=== PATIENT | female | born 1995 | race Caucasian/White ===

== ENCOUNTER 2016-12-06 12:42 | Emergency (ER) | payer OTHER ==
[2016-12-06] MEDS ORDERED: Clindamycin 600 MG IVPREMIX(* 600 MG/50 ML SDV IV ONE (13:05)
--- NOTE | 2016-12-06 13:07 | ED ---
Throat Pain/Nasal Congestion - HPI Summary HPI Summary: 21F presents with right eye swelling. She has been having issues with the eye such as stye over the past three weeks. She has been having eye irritation and redness off and on in both eyes. She states yesterday the eyelid started to swell, she had yellow drainage from the eye and her vision became blurry. She states the swelling today was worst. She has been on augmentin orally and erythromycin ointment. She does not wear contacts. She denies any dental pain. She does have sinus tenderness and has sinus congestion. She has a history of seasonally allergies. She denies any fever. she is having photophobia. - History of Current Complaint Chief Complaint: EDEyeProblem Time Seen by Provider: 12/06/16 12:50 - Allergies/Home Medications Allergies/Adverse Reactions: Allergies Allergy/AdvReac Type Severity Reaction Status Date / Time No Known Allergies Allergy Verified 12/06/16 12:44 PMH/Surg Hx/FS Hx/Imm Hx Endocrine/Hematology History: Denies: Hx Anticoagulant Therapy Respiratory History: Reports: Hx Asthma - exercise-induced Infectious Disease History: No Infectious Disease History: Denies: Traveled Outside the [place] in Last 30 Days - Family History Known Family History: Positive: Hypertension - Social History Alcohol Use: Occasionally Substance Use Type: Reports: None Hx Tobacco Use: No Smoking Status (MU): Never Smoked Tobacco Review of Systems Negative: Fever Positive: Photophobia, Blurred Vision, Drainage Positive: Nasal Discharge. Negative: Sore Throat, Ear Ache Negative: Chest Pain Negative: Shortness Of Breath All Other Systems Reviewed And Are Negative: Yes Physical Exam Triage Information Reviewed: Yes Vital Signs On Initial Exam: Initial Vitals Temp Pulse Resp BP Pulse Ox 97.8 F 80 16 127/79 100 12/06/16 12:44 12/06/16 12:44 12/06/16 12:44 12/06/16 12:44 12/06/16 12:44 Vital Signs Reviewed: Yes Appearance: Positive: Well-Appearing Skin: Positive: Warm, Dry Head/Face: Positive: Normal Head/Face Inspection Eyes: Positive: EOMI - with pain, DIMITRY, Discharge - yellow, Other: - edema present to upper and lower lid of right eye ENT: Positive: Normal ENT inspection, Pharynx normal, Nasal congestion, Nasal drainage, TMs normal Neck: Positive: Supple, Nontender, No Lymphadenopathy Respiratory/Lung Sounds: Positive: Clear to Auscultation, Breath Sounds Present Cardiovascular: Positive: Normal, RRR Diagnostics - Vital Signs Vital Signs Temp Pulse Resp BP Pulse Ox 12/06/16 12:44 97.8 F 80 16 127/79 100 - Laboratory Result Diagrams: 12/06/16 13:10 12/06/16 13:10 Lab Statement: Any lab studies that have been ordered have been reviewed, and results considered in the medical decision making process. - CT orbit CT Interpretation: Positive (See Comments) - IMPRESSION: SMALL AMOUNT OF PRESEPTAL SOFT TISSUE SWELLING IN THE RIGHT, OTHERWISE NEGATIVE CT Interpretation Completed By: Radiologist EENT Course/Dx - Course Course Of Treatment: 21F presents with swelling in right eyelid for a day. was seen at urgent care and was placed on augmentin took three tablets and erythromycin ointment. admits to blurry vision, unable to open eyes more than 1/ 2 cm, yellow drainage, denies any fever. on exam has pain with EOM so will get CT to check for orbital cellulitis. gave dose of IV clindamycin. wbc 8.1, lactic normal. CT show small amount of preseptal soft tissue swelling in right. discussed that need to add bactrim to augmentin to cover more pathogens. on exam mild edema of eyelid. patient understands and agrees with plan - Differential Diagnoses Differential Diagnoses: Conjunctivitis, Other - orbital, periorbital cellulitis - Diagnoses Provider Diagnoses: Periorbital cellulitis of right eye Discharge - Discharge Plan Condition: Good Disposition: HOME Prescriptions: Amoxicillin/Clavulanate TAB* [Augmentin TAB 875*] 875 mg PO BID #6 tab Sulfamethox/Trimethoprim DS* [Bactrim DS 800/160 TAB*] 1 tab PO BID #19 tab Patient Education Materials: Periorbital Cellulitis in Adults (ED) Referrals: No Primary Care Phys,NOPCP [Primary Care Provider] - Rafi Alvarez MD [Medical Doctor] - Additional Instructions: Take Augmentin as prescribed and added on three more days to take antibiotic Take Bactrim twice a day for 10 days, take first dose tonight Follow up with ophthalmology Return to ED if develop fever, worsening pain with eye movement, or any new or worsening symptoms
[2016-12-06 13:26] LABS: Hematocrit 39 % (35-47); Hemoglobin 12.9 g/dl (12.0-16.0); Mean Corpuscular HGB Conc 33 g/dl (31-36); Mean Corpuscular Hemoglobin 29 pg (27-31); Mean Corpuscular Volume 86 fL (80-97); Mean Platelet Volume 7 um3 (7.4-10.4); Red Cell Distribution Width 13 % (10.5-15); White Blood Count 8.1 10^3/ul (3.5-10.8)
[2016-12-06 13:40] LABS: BUN/Creatinine Ratio 16.1 (8-20); Calcium 9.2 mg/dL (8.6-10.3); EGFR African American 97.9 (>60); EGFR Non-African American 76.1 (>60); Globulin 2.9 g/dL (2-4); Potassium 3.8 mmol/L (3.5-5.0); Total Bilirubin 0.5 mg/dL (0.2-1.0); Total Protein 6.9 g/dL (6.4-8.9)
[2016-12-06] MEDS ORDERED: Iohexol 300* (CONTRAST) 10 ML SDV IV ONE (13:45)
--- NOTE | 2016-12-06 14:19 | RAD ---
INDICATION: Right a pain and swelling COMPARISON: None TECHNIQUE: Contrast-enhanced study (76 mL Omnipaque 300) source images were acquired through the orbits. Coronal and sagittal reconstructed images were acquired. FINDINGS: Bones: There is no acute facial bone fracture. Orbits: The globes and intraconal structures appear intact. The optic nerves are symmetric. Extraocular muscles appear normal. There is no intraconal inflammatory change or retrobulbar mass.. Paranasal sinuses: There is mild maxillary antral sinus mucosal thickening. No air-fluid levels identified.. Brain: There are no acute abnormalities of the visualized brain parenchyma. Soft tissues: There is a small amount of soft tissue swelling in the preseptal soft tissues on the right Other: None The visualized soft tissue elements about the neck appear normal. IMPRESSION: SMALL AMOUNT OF PRESEPTAL SOFT TISSUE SWELLING IN THE RIGHT, OTHERWISE NEGATIVE
[2016-12-06] MEDS ORDERED: Sulfamethox/Trimethoprim DS 800/160* TAB PO ONE (14:41)
== END 2016-12-06 14:59 | disposition home or self-care (01) ==
LOC: ED 12:42
DX: L03.213 Periorbital cellulitis (principal); H53.149 Visual discomfort, unspecified; H53.8 Other visual disturbances
CPT/HCPCS: 36415; 70481; 80053; 83605; 85025; 99282; A9270-GY; Q9967

== ENCOUNTER 2017-08-23 21:39 | Emergency (ER) | payer OTHER ==
[2017-08-23] MEDS ORDERED: Ibuprofen TAB* 600 MG PO ONE (22:16)
--- NOTE | 2017-08-23 23:14 | UC ---
Mary Jane Ortez Julia, scribed for Irwin Avery MD on 08/23/17 at 2228 . General HPI - HPI Summary HPI Summary: This patient is a 22 year old F presenting to [facility] [place] with a chief complaint of sore throat worsening since last night. Patient reports congestion, ear pressure , difficulty breathing, body aches fever, chills, and headache. The patient rates the pain 4/10 in severity. Symptoms aggravated by nothing. Symptoms alleviated by nothing. Pt has positive strep contact at work. - History of Current Complaint Chief Complaint: UCRespiratory Stated Complaint: THROAT PAIN Time Seen by Provider: 08/23/17 21:58 Hx Obtained From: Patient Hx Last Menstrual Period: 3 WEEKS AGO Onset/Duration: Lasting Hours Timing: Constant Pain Intensity: 4 Pain Location at: throat, body aches Character: achy Aggravating: nothing Alleviating: nothing Associated Signs & Symptoms: Positive: Other - congestion, ear pressure, difficulty breathing, body aches fever, chills, and headache Related Hx: Recent Illness - recent positive strep contact - Allergy/Home Medications Allergies/Adverse Reactions: Allergies Allergy/AdvReac Type Severity Reaction Status Date / Time ENVIRONMENTAL* Allergy COUGH, Uncoded 08/23/17 22:05 CONGESTION, SNEEZING Home Medications: Home Medications Cetirizine* [ZyrTEC 10 MG TAB*] 10 mg PO DAILY 08/23/17 [History Confirmed 08/23] PMH/Surg Hx/FS Hx/Imm Hx Respiratory History: Asthma - exercise enduced Other History Of: Negative For: Anticoagulant Therapy - Surgical History Surgical History: None - Family History Known Family History: Positive: Hypertension - Social History Alcohol Use: Occasionally Substance Use Type: None Smoking Status (MU): Never Smoked Tobacco Review of Systems Constitutional: Fever, Chills ENT: Sore Throat, Ear Ache Respiratory: Shortness Of Breath, Other - chest congestion Musculoskeletal: Myalgia - body aches Neurological: Headache All Other Systems Reviewed And Are Negative: Yes Physical Exam Triage Information Reviewed: Yes Vital Signs: Initial Vital Signs Temp 99 F 08/23/17 22:00 Pulse 96 08/23/17 22:00 Resp 16 08/23/17 22:00 BP 131/89 08/23/17 22:00 Pulse Ox 100 08/23/17 22:00 Vital Signs Reviewed: Yes - Additional Comments General: well-appearing, no pain distress Skin: warm, color reflects adequate perfusion, dry Head: normal Eyes: EOMI, DIMITRY ENT: tonsils are 2+, mild posterior pharynx erythema Neck: supple, nontender Respiratory: CTA, breath sounds present Cardiovascular: RRR Abdomen: soft, nontender Bowel: present Musculoskeletal: normal, strength/ROM intact Neurological: normal, sensory/motor intact, A&O x3 Psychological: affect/mood appropriate Course/Dx - Course Course Of Treatment: BP noted and advised to follow up with PCP. DISCUSSED RESULTS WITH PATIENT AND SX TREATMENT. - Differential Dx - Multi-Symptom Provider Diagnoses: PHARYNGITIS. VIRAL ILLNESS Discharge - Discharge Plan Condition: Stable Disposition: HOME Patient Education Materials: Pharyngitis (ED), Viral Syndrome (ED) Referrals: [facility] [place] [facility] [Outside] Additional Instructions: FOLLOW UP WITH YOUR DOCTOR. GET RECHECKED FOR ANY WORSENING OF YOUR CONDITION OR QUESTIONS OR CONCERNS. Your blood pressure was elevated during todays visit; please follow up with your primary care provider within a week for further evaluation. The documentation as recorded by the Mary Jane trejo Julia accurately reflects the service I personally performed and the decisions made by me, Irwin Avery MD.
== END 2017-08-23 23:15 | disposition home or self-care (01) ==
LOC: UCEAST 21:39
DX: J02.9 Acute pharyngitis, unspecified (principal); B34.9 Viral infection, unspecified
CPT/HCPCS: 87502; 87651; 99211; A9270-GY; G0463

== ENCOUNTER 2018-01-12 16:31 | Emergency (ER) | payer OTHER ==
[2018-01-12 16:42] VITALS: BP 114/68
[2018-01-12] MEDS ORDERED: Ibuprofen TAB* 400 MG PO ONE (17:14)
[2018-01-12] MEDS ORDERED: Lidocaine/Epineph/Tetraca SOL* (LET solution) 4 ML BTL TOPICAL ONE (17:39)
--- NOTE | 2018-01-12 17:57 | UC ---
Laceration HPI - HPI Summary HPI Summary: 22 y/o female presents to the urgent care c/o left sole pain and puncture wound s/p swimming in the [facility] yesterday. Pt states she was walking w/ water shoes and hit something sharp and thinks she has a FB in her left sole and unsure if it is a glass or rock. Pain is 4/10 at touch and 8/10 w/ walking. Pt is not UTD w/ Tetanus vaccine. LMP:12/23/2017 on control. Pt denies fever, SOB, calf pain, chest pain, abdominal pain, N/V/D. - History Of Current Complaint Chief Complaint: UCLowerExtremity Stated Complaint: SPLINTER IN FOOT Time Seen by Provider: 01/12/18 17:01 Hx Obtained From: Patient Hx Last Menstrual Period: unknown Laceration Location: Foot - let sole puncture wound w/ a glass or rock s/p swimming Mechanism Of Injury: Sharp Trauma Onset/Duration: Gradual Onset, Still Present, Worse Since - today Severity: Moderate Pain Intensity: 5 Pain Scale Used: 0-10 Numeric Aggravating Factors: Other: - touch - Allergies/Home Medications Allergies/Adverse Reactions: Allergies Allergy/AdvReac Type Severity Reaction Status Date / Time ENVIRONMENTAL* Allergy COUGH, Uncoded 01/12/18 16:42 CONGESTION, SNEEZING Home Medications: Home Medications Levonorgestrel (Iud) [Mirena IUD] 01/12/18 [History] PMH/Surg Hx/FS Hx/Imm Hx Previously Healthy: Yes Respiratory History: Asthma Other Respiratory History: seasonal allergies Other History Of: Negative For: Anticoagulant Therapy - Surgical History Surgical History: None - Family History Known Family History: Positive: Hypertension - Social History Occupation: Student Lives: With Family Alcohol Use: Occasionally Substance Use Type: None Smoking Status (MU): Never Smoked Tobacco Review of Systems Constitutional: Negative Skin: Other - left soel punture wound w/ a glass or rock Eyes: Negative ENT: Negative Respiratory: Negative Cardiovascular: Negative Gastrointestinal: Negative Genitourinary: Negative Motor: Negative Neurovascular: Negative Musculoskeletal: Other: - left sole pain s/p puncture wound w/ glass or rock Neurological: Negative Psychological: Negative Is Patient Immunocompromised?: No All Other Systems Reviewed And Are Negative: Yes Physical Exam - Summary Physical Exam Summary: Vital Signs Reviewed: Yes General: well developed, well nourished female sitting in the examining table w/ o any apparent distress Eye Exam: Normal Eyes: Positive: Conjunctiva Clear - PERRLA, EOMI, fundi grossly normal ENT: Positive: Normal ENT inspection, Hearing grossly normal, Pharynx normal, TMs normal Neck: Positive: Supple, Nontender, No Lymphadenopathy Respiratory: Positive: Chest non-tender, Lungs clear, Normal breath sounds, No respiratory distress Cardiovascular: Positive: RRR, No Murmur, Pulses Normal, Brisk Capillary Refill Abdomen Description: Positive: Nontender, No Organomegaly, Soft. Negative: CVA Tenderness (R), CVA Tenderness (L) Bowel Sounds: Positive: Present Musculoskeletal: Positive: Strength Intact, ROM Intact, No Edema Neurological: Positive: Alert, Muscle Tone Normal Psychological Exam: Normal Skin: Positive:Lateral side of RT elbow near the lateral epicondyle with a linear superficial laceration about 2.5cm in size, bleeding, no foreign body observed. mild tenderness to palpation, mild ecchymosis around elbow. FROM of RT arm, sensation intact, capillary refill brisk, and pulses WNL. Triage Information Reviewed: Yes Vital Signs: Initial Vital Signs Temp 98.4 F 01/12/18 16:32 Pulse 84 01/12/18 16:32 Resp 16 01/12/18 16:32 BP 114/68 01/12/18 16:32 Pulse Ox 100 01/12/18 16:32 Laceration Course/Dx - Course/Dx Course Of Treatment: 22 y/o female presents to the urgent care c/o left sole pain and puncture wound s/p swimming in the [facility] yesterday. Pt states she was walking w/ water shoes and hit something sharp and thinks she has a FB in her left sole and unsure if it is a glass or rock. Pain is 4/10 at touch and 8/10 w/ walking. Pt is not UTD w/ Tetanus vaccine. LMP:12/23/2017 on control. Pt denies fever, SOB, calf pain, chest pain, abdominal pain, N/V/D.Hx obtained. Pt w/ a puncture wound and black discrete FB in the left sole at the level of the 4th Metatarsal on examiantion. Left foot X-ray ordered to see how big and deep is FB. Impression:Puntate radiodnese focus along the plantar surface of the proximal head of the left phalanges. FOREIGN BODY REMOVAL PROCEDURE: Copious irrigation was done with saline and the wound explored. Timeout performed with the nurse. The procedure was explained and consent obtained. LET ordered to topically anesthetize the area and remove FB.Wound cleaned w/ Iodine swabs. Pt very sensitive and area had to be anesthesized w/ 2ml 1% Lidocaine to obtained goo anesthesia. Small rock removed w/ a 30G needle. Bacitrain oint applied over area. Wound dressed w/ sterile gauze.The Pt tolerated the procedure well without adverse effects. Neurovascular intact and FROM of LF foot. Pt Rx Keflex PO. Tdap ordered and applied by nurse. Pt advised if any signs of infection develop to immediately return to the urgent care of PCP for further management and treatment. Pt understood and agreed and left the clinic ambulating A&Ox3. - Differential Dx - Laceration/Wound Differental Diagnoses: Abrasion, Foreign Body, Laceration, Puncture Wound Provider Diagnoses: 1- left foot pain w/ foreign body s/p puncture wound w/ a small rock. 2-Small foreing body removal from left sole Discharge - Sign-Out/Discharge Documenting (check all that apply): Discharge/Admit/Transfer - D/C home - Discharge Plan Condition: Stable Disposition: HOME Prescriptions: Bacitracin OINTMENT* 1 applic TOPICAL TID #1 tube Cephalexin CAP* [Keflex CAP*] 500 mg PO TID #21 cap Patient Education Materials: Puncture Wound (ED) Forms: *Work Release Referrals: [facility] [place] [facility] [place]Outside] - 3 Days Additional Instructions: 1-Please take full course of antibiotic to avoid resistance. 2- Keep wound clean and dry and avoid excessive movement w/ your foot. elevate leg at night time, Avoid long standing periods 3- Take Ibuprofen or Tylenol PO q6-8hrs prn for pain or swelling. 5- If you develop fever or redness around your foot despite the antibiotic please go to the ER immediately or return to the Urgent care. - Billing Disposition and Condition Condition: STABLE Disposition: Home
[2018-01-12] MEDS ORDERED: Tetan/Diph/Pertus SYR(Tdap)* 0.5 ML SYR(BOOSTRIX) use SYR IM ONE (18:00)
--- NOTE | 2018-01-12 18:03 | RAD ---
INDICATION: Glass puncture 2 plantar surface of the foot the previous day COMPARISON: None. TECHNIQUE: 2 views of the left foot were obtained. FINDINGS: On the lateral view image of the left foot there is a punctate hyperdense focus along the plantar margin of the proximal head of the left toe phalanges. The adequately corticated bones are properly aligned. Joint spaces appear maintained. No fracture, dislocation or focal bony abnormality is seen. IMPRESSION: PUNCTATE RADIODENSE FOCUS ALONG THE PLANTAR SURFACE OF THE PROXIMAL HEAD OF THE LEFT TOE PHALANGES. THIS COULD BE A FOREIGN BODY IN THE CORRECT CLINICAL SETTING. PLEASE CORRELATE TO PHYSICAL EXAMINATION.
[2018-01-12] MEDS ORDERED: Lidocaine 1%* 5 ML VIAL INJ ONE (18:14)
== END 2018-01-12 18:55 | disposition home or self-care (01) ==
LOC: UCEAST 16:31
DX: S91.342A Puncture wound with foreign body, left foot, initial encounter (principal); W26.8XXA Contact with other sharp object(s), not elsewhere classified, initial encounter; Y93.11 Activity, swimming; Y92.828 Other wilderness area as the place of occurrence of the external cause; Z23 Encounter for immunization; J45.909 Unspecified asthma, uncomplicated; Z82.49 Family history of ischemic heart disease and other diseases of the circulatory system
CPT/HCPCS: 90471; 90715; 99212; A9270-GY; G0463